=== PATIENT | male | born 1955 | race Caucasian/White ===

== ENCOUNTER 2017-12-09 12:36 | Outpatient (CLI) | payer OTHER ==
[2017-12-09] MEDS ORDERED: BARIUM SULFATE 135 ML SUSP.RECON (E-Z-HD) PO ONE (13:16)
== END 2017-12-09 20:00 | disposition home or self-care (01) ==
LOC: SRD 12:36
DX: R13.19 Other dysphagia (principal); R62.59 Other lack of expected normal physiological development in childhood; Z93.1 Gastrostomy status
CPT/HCPCS: 74230; 92611; G8996; G8997; G8998